=== PATIENT | female | born 1980 | race American Indian/Alaskan Native ===

== ENCOUNTER 2016-08-27 17:10 | Emergency (ER) | payer BC, OTHER ==
[2016-08-27 17:10] VITALS: BMI 20.9
[2016-08-27 17:21] VITALS: RESP 16; TEMP 98.4
--- NOTE | 2016-08-27 17:52 | ED PDOC ---
Arrival/HPI - General Chief Complaint: Flu-like Symptoms Time Seen by Provider: 08/27/16 17:47 - History of Present Illness Narrative History of Present Illness (Text): 08/27/16 18:17 36yo female with 2-3 days duration fevers, chills, sore throat, L. earache, dry cough, and nasal congestion. Denies cp/sob/mckeon. Denies neck pain. No other complaints. Past Medical History - Provider Review Nursing Documentation Reviewed: Yes - Infectious Disease Hx of Infectious Diseases: None - Pulmonary Hx Asthma: Yes - Renal Hx Kidney Stones: Yes - Hematological/Oncological Hx Blood Transfusions: No - Musculoskeletal/Rheumatological Hx Falls: No - Gastrointestinal Hx Gastrointestinal Disorders: Yes Hx Gastroesophageal Reflux: Yes Other/Comment: abd cramping and rectal bleeding on and off since jan 2015 - Genitourinary/Gynecological Hx Genitourinary Disorders: Yes Hx Urinary Tract Infection: Yes (e coli) Other/Comment: ectopic/perineal - Psychiatric Hx Depression: No Hx Emotional Abuse: No Hx Physical Abuse: No Hx Substance Use: No - Anesthesia Hx Anesthesia: Yes Hx Anesthesia Reactions: No Hx Malignant Hyperthermia: No - Suicidal Assessment Feels Threatened In Home Enviroment: No Family/Social History Family/Social History: Unknown Family HX Smoking Status: Light Smoker < 10 Cigarettes Daily Hx Alcohol Use: Yes (social) Frequency of alcohol use: Socially Hx Substance Use: No Allergies/Home Meds Allergies/Adverse Reactions: Allergies latex Allergy (Verified 01/21/16 13:42) RASH Review of Systems - Physician Review All systems were reviewed & negative as marked: Yes - Review of Systems Constitutional: Fevers. absent: Fatigue, Weight Change Eyes: absent: Vision Changes, Photophobia ENT: Sore Throat, Sinus Congestion Respiratory: Cough. absent: SOB, Wheezing Cardiovascular: absent: Chest Pain, Orthopnea Gastrointestinal: absent: Abdominal Pain, Nausea, Vomiting Genitourinary Female: absent: Dysuria, Frequency Musculoskeletal: absent: Back Pain, Neck Pain Skin: absent: Rash, Pruritis Neurological: absent: Headache, Dizziness Physical Exam - Physical Exam Narrative Physical Exam (Text): - Physical exam Patient appears age appropriate, speaking full sentences without difficulty - Systems Exam Head: Present: Atraumatic, Normocephalic Pupils: Present: PERRL Extraocular Muscles: Present: EOMI Conjunctiva: Present: Normal ENT: Erythematous posterior pharynx, No pain with hyoid manipulation, No muffled voice, no floor of mouth pain or elevation Mouth: Present: Moist Mucous Membranes Neck: Present: Normal Range of Motion. No: MIDLINE TENDERNESS, Paraspinal Tenderness Respiratory/Chest: Present: Clear to Auscultation, Good Air Exchange. No: Respiratory Distress, Accessory Muscle Use, Tachypneic Cardiovascular: Present: Regular Rate and Rhythm, Normal S1, S2, Peripheral Pulses Present. No: Murmurs Abdomen: Present: Normal Bowel Sounds, No: Tenderness, Peritoneal Signs, Rebound, Guarding, Distention Back: Present: Normal Inspection. No: Midline Tenderness, Paraspinal Tenderness Upper Extremity: Present: Normal Inspection. No: Cyanosis, Edema Lower Extremity: Present: Normal Inspection. No: Edema Neurological: Present: GCS=15, Speech Normal, cranial nerves II through XII fully intact with no cerebellar abnormality, neuro-sensory fully intact. No focal neurological deficits. Skin: Present: Warm, Dry, Normal Color. No: Rashes Lymphatic: Present: OX3, NI, NC Psychiatric: Present: Alert, Oriented x 3, Normal Insight, Normal Concentration Vital Signs Reviewed: Yes Vital Signs Temp Pulse Resp BP Pulse Ox 08/27/16 17:10 98.4 F 59 L 16 130/84 97 Temperature: Afebrile Blood Pressure: Normal Pulse: Regular Respiratory Rate: Normal Appearance: Positive for: Well-Appearing Pain Distress: None Mental Status: Positive for: Alert and Oriented X 3 - Systems Exam Ears: Present: Normal (b/l), NORMAL TM, Normal Canal. No: Erythema, TM Bulging , Fluid, TM Perf Mouth: No: Dry, Drooling, Trismus Pharnyx: No: TONSILS ENLARGED, Peritonsilar Swelling, Uvular Deviation, Muffled/ Hoarse Voice, Strider, Soft Palate/Uvular Edema Medical Decision Making ED Course and Treatment: 36yo female with URI symptoms. No acute findings on PE. Pt afebrile and well appearing. will be dc'd home on abx, decongestants, and anti-tussive meds pt states she feels comfortable being dc'd home with outpatient f/u Pt states she understands to return to the ER right away for new or worsening symptoms or for inability to f/u with PMD or specialist as instructed. Patient states that she fully agrees with and understands discharge instructions. States that she agrees with the plan and disposition. Verbalized and repeated discharge instructions and plan. I have given the patient opportunity to ask any additional questions. Disposition/Present on Arrival - Present on Arrival Any Indicators Present on Arrival: No History of DVT/PE: No History of Uncontrolled Diabetes: No Urinary Catheter: No History of Decub. Ulcer: No History Surgical Site Infection Following: None - Disposition Have Diagnosis and Disposition been Completed?: Yes Diagnosis: Upper respiratory infection Disposition: HOME/ ROUTINE Disposition Time: 17:53 Patient Plan: Discharge Condition: GOOD Discharge Instructions (ExitCare): Upper Respiratory Infection (ED) Additional Instructions: PLEASE RETURN TO THE EMERGENCY DEPARTMENT FOR NEW OR WORSENING SYMPTOMS. RETURN RIGHT AWAY IF YOU CANNOT FOLLOW UP WITH YOUR PRIMARY CARE DOCTOR, CLINIC, OR SPECIALIST IN 1-2 DAYS. Prescriptions: Amoxicillin/Clavulanate [Augmentin 875 MG-125 MG] 1 tab PO BID #14 tab Benzonatate [Tessalon Perle] 100 mg PO Q8 PRN #12 capsule PRN Reason: Cough Guaifen/Phenyleph/Acetaminophn [Mucinex Fast-Max Cold & Sinus 325 mg-200 mg-5] 1 tab PO Q6 #1 packet Referrals: Shant Wallace DO [Staff Provider] - Follow up with primary [facility] [place] - Follow up with primary Forms: WORK NOTE
[2016-08-27 18:36] VITALS: BP 129/81; PULSE 66; O2SAT 98
== END 2016-08-27 18:35 | disposition home or self-care (01) ==
LOC: ED 17:10
DX: J06.9 Acute upper respiratory infection, unspecified (principal)

== ENCOUNTER 2016-09-17 23:43 | Emergency (ER) | payer OTHER ==
[2016-09-17 23:55] VITALS: BMI 21.3
[2016-09-17 23:56] VITALS: RESP 18
[2016-09-18] MEDS ORDERED: Sodium Chloride 0.9% 1,000 ML IV STA (00:04)
--- NOTE | 2016-09-18 00:16 | ED PDOC ---
Arrival/HPI - General Chief Complaint: Flu-like Symptoms Time Seen by Provider: 09/17/16 23:52 Historian: Patient - History of Present Illness Narrative History of Present Illness (Text): 09/17/16 23:52 Keerthi Greenwood is a 36 year old female, with a past medical history of asthma and anemia, presents to the emergency department complaining of frontal headache associated with room-spinning sensation since yesterday. Patient reports she has runny nose and photophobia. She had a 102F fever at home and took Motrin at 10pm. She also informs of chest heaviness which is worsened with deep inspiration. Last menstrual period was September 13. Denies any cough, shortness of breath, nausea, vomiting, diarrhea, or any other complaints at this time. Time/Duration: Other (since yesterday night ) Symptom Course: Unchanged Severity Level: Mild Activities at Onset: Light Context: Home Past Medical History - Provider Review Nursing Documentation Reviewed: Yes - Infectious Disease Hx of Infectious Diseases: None - Pulmonary Hx Asthma: Yes - Renal Hx Kidney Stones: Yes - Hematological/Oncological Hx Anemia: Yes Hx Blood Transfusions: No - Musculoskeletal/Rheumatological Hx Falls: No - Gastrointestinal Hx Gastrointestinal Disorders: Yes Hx Gastroesophageal Reflux: Yes Other/Comment: abd cramping and rectal bleeding on and off since jan 2015 - Genitourinary/Gynecological Hx Genitourinary Disorders: Yes Hx Urinary Tract Infection: Yes (e coli) Other/Comment: ectopic/perineal - Psychiatric Hx Depression: No Hx Emotional Abuse: No Hx Physical Abuse: No Hx Substance Use: No - Anesthesia Hx Anesthesia: Yes Hx Anesthesia Reactions: No Hx Malignant Hyperthermia: No - Suicidal Assessment Feels Threatened In Home Enviroment: No Family/Social History - Physician Review Nursing Documentation Reviewed: Yes Family/Social History: No Known Family HX Smoking Status: Light Smoker < 10 Cigarettes Daily Hx Alcohol Use: Yes (social) Hx Substance Use: No Allergies/Home Meds Allergies/Adverse Reactions: Allergies latex Allergy (Verified 09/18/16 00:00) RASH Review of Systems - Physician Review All systems were reviewed & negative as marked: Yes - Review of Systems Constitutional: Fevers. absent: Fatigue Eyes: Photophobia. absent: Vision Changes, Eye Pain ENT: Rhinorrhea, Sinus Congestion Respiratory: absent: SOB, Cough, Sputum Cardiovascular: Chest Pain Gastrointestinal: absent: Abdominal Pain, Diarrhea, Nausea, Vomiting Genitourinary Female: absent: Dysuria Neurological: Headache. absent: Dizziness, Focal Weakness Physical Exam Vital Signs Reviewed: Yes Vital Signs Temp Pulse Resp BP Pulse Ox 09/17/16 23:55 99.3 F 80 18 130/91 H 100 Temperature: Afebrile Blood Pressure: Normal Pulse: Regular Respiratory Rate: Normal Appearance: Positive for: Well-Appearing, Non-Toxic, Comfortable Pain Distress: None Mental Status: Positive for: Alert and Oriented X 3 - Systems Exam Head: Present: Atraumatic, Normocephalic Pupils: Present: PERRL Conjunctiva: Present: Normal Mouth: Present: Moist Mucous Membranes Respiratory/Chest: Present: Clear to Auscultation, Good Air Exchange. No: Respiratory Distress, Accessory Muscle Use Cardiovascular: Present: Regular Rate and Rhythm, Normal S1, S2. No: Murmurs Abdomen: Present: Normal Bowel Sounds. No: Tenderness, Distention, Peritoneal Signs Upper Extremity: Present: Normal Inspection. No: Cyanosis, Edema Lower Extremity: Present: Normal Inspection. No: Edema Neurological: Present: GCS=15, CN II-XII Intact, Speech Normal, Motor Func Grossly Intact, Normal Sensory Function Skin: Present: Warm, Dry, Normal Color. No: Rashes Psychiatric: Present: Alert, Oriented x 3, Normal Insight, Normal Concentration Medical Decision Making ED Course and Treatment: 09/18/16 00:17 Impression: A 36 year old female who presents to the emergency department complaining of frontal headache associated with runny nose and photophobia. Patient also complains of chest heaviness. Differential Diagnosis include but are not limited to: Sinusitis vs. Migraines vs. URI. ACS considered, but chest pain is atypical in nature, and patient has no ACS risk factors and is PERC negative. Plan: -- CT Head -- EKG -- Chest X-ray -- Toradol -- Reglan -- IV fluids -- POC test -- Reassess and disposition Progress Notes: 09/18/16 01:51 EXAM: CT Head Without Intravenous Contrast FINDINGS: Limitations: Motion artifact - mild. Brain: No definite intracranial hemorrhage. No mass. No definite edema. Ventricles: No hydrocephalus. Bones/joints: No acute fracture. Soft tissues: Scalp calcifications. Sinuses: No acute sinusitis. Mastoid air cells: No mastoid effusion. Orbits: Unremarkable as visualized. IMPRESSION: 1. No definite acute intracranial abnormality. 2. Incidental/non-acute findings are described above. Dictated and Authenticated by: Lamont Loyola MD 09/18/16 01:57 EKG: NSR @ 70; no ST/T changes; normal intervals, normal axis. 09/18/16 01:[address] with no acute findings. Patient is feeling better compared to when she came in. EKG and CXR are unremarkable. Will d/c on naprosyn and treat for sinusitis given her symptoms. Will also give meclizine for vertigo. - RAD Interpretation Radiology Orders: 09/18/16 00:03 Brain [HEAD W/O CONTRAST] [CT] Stat CHEST TWO VIEWS (PA/LAT) [RAD] Stat - Medication Orders Current Medication Orders: Discontinued Medications Sodium Chloride (Sodium Chloride 0.9%) 1,000 mls @ 999 mls/hr IV .Q1H1M STA Stop: 09/18/16 01:04 Last Admin: 09/18/16 00:26 Dose: 999 mls/hr Ketorolac Tromethamine (Toradol) 30 mg IVP STAT STA Stop: 09/18/16 00:04 Last Admin: 09/18/16 00:27 Dose: 30 mg Metoclopramide HCl (Reglan) 10 mg IVP STAT STA Stop: 09/18/16 00:04 Last Admin: 09/18/16 00:27 Dose: 10 mg Tramadol/Acetaminophen (Ultracet 37.5/325 Mg) 2 tab PO STAT STA Stop: 09/18/16 00:50 Last Admin: 09/18/16 01:04 Dose: 2 tab - Scribe Statement The provider has reviewed the documentation as recorded by the Mateo Ba Provider Attestation: All medical record entries made by the Mateo were at my direction and personally dictated by me. I have reviewed the chart and agree that the record accurately reflects my personal performance of the history, physical exam, medical decision making, and the department course for this patient. I have also personally directed, reviewed, and agree with the discharge instructions and disposition. Disposition/Present on Arrival - Present on Arrival Any Indicators Present on Arrival: No History of DVT/PE: No History of Uncontrolled Diabetes: No Urinary Catheter: No History of Decub. Ulcer: No History Surgical Site Infection Following: None - Disposition Have Diagnosis and Disposition been Completed?: Yes Diagnosis: Headache, Vertigo Disposition: HOME/ ROUTINE Disposition Time: 02:00 Patient Plan: Discharge Condition: GOOD Discharge Instructions (ExitCare): Acute Headache (ED), Vertigo (ED) Additional Instructions: Take the medications as prescribed. Drink plenty of fluids. Follow up with the medical clinic. Return to the emergency department if any new concerning symptoms. Prescriptions: Amoxicillin/Clavulanate [Augmentin 875 MG-125 MG] 1 tab PO BID #20 tab Meclizine [Antivert] 1 tab PO TID PRN #15 tab PRN Reason: Dizziness Naproxen [Naprosyn Tab] 1 tab PO BID #14 tab Pseudoephedrine [Sudafed Tab] 2 tab PO Q6H PRN #24 tab PRN Reason: Nasal Congestion Referrals: [facility] [place] [Outside] - Follow up with primary
[2016-09-18] MEDS ORDERED: TraMADol/Apap 37.5/325 mg Tab PO STA (00:49)
--- NOTE | 2016-09-18 01:43 | CT ---
EXAM: CT Head Without Intravenous Contrast CLINICAL HISTORY: 36 years old, female; Pain; Headache TECHNIQUE: Axial computed tomography images of the head/brain without intravenous contrast. This CT exam was performed using one or more of the following dose reduction techniques: automated exposure control, adjustment of the mA and/or kV according to patient size, and/or use of iterative reconstruction technique. COMPARISON: No relevant prior studies available. FINDINGS: Limitations: Motion artifact - mild. Brain: No definite intracranial hemorrhage. No mass. No definite edema. Ventricles: No hydrocephalus. Bones/joints: No acute fracture. Soft tissues: Scalp calcifications. Sinuses: No acute sinusitis. Mastoid air cells: No mastoid effusion. Orbits: Unremarkable as visualized. IMPRESSION: 1. No definite acute intracranial abnormality. 2. Incidental/non-acute findings are described above.
[2016-09-18] MEDS ORDERED: Amoxicillin-Clav 875-125 mg Tab PO STA (02:05)
[2016-09-18 02:30] VITALS: BP 121/86; PULSE 78; TEMP 98.8; O2SAT 99
--- NOTE | 2016-09-18 07:57 | RAD ---
HISTORY: cp COMPARISON: 12/09/2015 TECHNIQUE: Chest PA and lateral FINDINGS: LUNGS: No active pulmonary disease. PLEURA: No significant pleural effusion identified. No pneumothorax apparent. CARDIOVASCULAR: Normal. OSSEOUS STRUCTURES: No significant abnormalities. VISUALIZED UPPER ABDOMEN: Normal. OTHER FINDINGS: There are round metallic densities projecting over the posterior aspect of each upper thorax. IMPRESSION: No active disease.
--- NOTE | 2016-09-18 10:48 | CARD ---
APPROVED REPORT EKG Measurement Heart [id number] ID [id number] <Conclusion> Normal sinus rhythm with sinus arrhythmia Septal infarct, age undetermined LVH by voltage NSSTW changes
== END 2016-09-18 02:04 | disposition home or self-care (01) ==
LOC: ED 23:43
DX: R51 Headache (principal); R42 Dizziness and giddiness; J45.909 Unspecified asthma, uncomplicated; D64.9 Anemia, unspecified; Z72.0 Tobacco use
CPT/HCPCS: 70450; 71020; 93005; 96361; 96374; 96375; 99283; J1885; J2765; J7040

== ENCOUNTER 2016-12-18 04:07 | Emergency (ER) | payer OTHER ==
[2016-12-18] MEDS ORDERED: Sodium Chloride 0.9% 1,000 ML IV STA (04:34)
--- NOTE | 2016-12-18 04:52 | ED PDOC ---
Arrival/HPI - General Chief Complaint: Abdominal Pain Time Seen by Provider: 12/18/16 04:33 Historian: Patient - History of Present Illness Narrative History of Present Illness (Text): 12/18/16 04:52 A 36 year old female, whose past medical history includes asthma, kidney stones and ectopic , presents to the emergency department complaining of left lower quadrant abdominal discomfort with some back pain for the past couple weeks. Reports pain is not associated with any vaginal discharge or dysuria. Patient denies any fever, chills, nausea, vomiting, diarrhea or any other complaints at this time. PMD: Dr. Clemens Time/Duration: > week Symptom Onset: Sudden Symptom Course: Unchanged Activities at Onset: Rest Context: Home Past Medical History - Provider Review Nursing Documentation Reviewed: Yes - Infectious Disease Hx of Infectious Diseases: None - Pulmonary Hx Asthma: Yes - Renal Hx Kidney Stones: Yes - Hematological/Oncological Hx Anemia: Yes Hx Blood Transfusions: No - Musculoskeletal/Rheumatological Hx Falls: No - Gastrointestinal Hx Gastrointestinal Disorders: Yes Hx Gastroesophageal Reflux: Yes Other/Comment: abd cramping and rectal bleeding on and off since jan 2015 - Genitourinary/Gynecological Hx Genitourinary Disorders: Yes Hx Urinary Tract Infection: Yes (e coli) Other/Comment: ectopic/perineal , Ovarian cyst, Fibroids. - Psychiatric Hx Depression: No Hx Emotional Abuse: No Hx Physical Abuse: No Hx Substance Use: No - Anesthesia Hx Anesthesia: Yes Hx Anesthesia Reactions: No Hx Malignant Hyperthermia: No - Suicidal Assessment Feels Threatened In Home Enviroment: No Family/Social History - Physician Review Nursing Documentation Reviewed: Yes Family/Social History: No Known Family HX Smoking Status: Light Smoker < 10 Cigarettes Daily Hx Alcohol Use: Yes (social) Hx Substance Use: No Allergies/Home Meds Allergies/Adverse Reactions: Allergies latex Allergy (Verified 12/18/16 04:55) RASH Home Medications: Home Meds Medication Instructions Recorded Confirmed No Known Home Med 12/18/16 12/18/16 Review of Systems - Physician Review All systems were reviewed & negative as marked: Yes - Review of Systems Constitutional: absent: Fevers, Other (chills) Gastrointestinal: Abdominal Pain (left lower quadrant ). absent: Diarrhea, Nausea, Vomiting Genitourinary Female: absent: Dysuria, Vaginal Discharge Musculoskeletal: Back Pain Physical Exam Vital Signs Reviewed: Yes Vital Signs Temp Pulse Resp BP Pulse Ox 10/04/17 06:58 90 18 124/88 99 12/18/16 04:31 99.2 F 92 H 20 139/99 H 99 Temperature: Afebrile Blood Pressure: Hypertensive Pulse: Regular Respiratory Rate: Normal Appearance: Positive for: Well-Appearing, Non-Toxic, Comfortable Pain Distress: None Mental Status: Positive for: Alert and Oriented X 3 - Systems Exam Head: Present: Atraumatic, Normocephalic Pupils: Present: PERRL Extroacular Muscles: Present: EOMI Conjunctiva: Present: Normal Mouth: Present: Moist Mucous Membranes Neck: Present: Normal Range of Motion Respiratory/Chest: Present: Clear to Auscultation, Good Air Exchange. No: Respiratory Distress, Accessory Muscle Use Cardiovascular: Present: Regular Rate and Rhythm, Normal S1, S2. No: Murmurs Abdomen: Present: Tenderness (LLQ palpable tenderness), Normal Bowel Sounds. No : Distention, Peritoneal Signs Back: Present: Normal Inspection Upper Extremity: Present: Normal Inspection. No: Cyanosis, Edema Lower Extremity: Present: Normal Inspection. No: Edema Neurological: Present: GCS=15, CN II-XII Intact, Speech Normal Skin: Present: Warm, Dry, Normal Color. No: Rashes Psychiatric: Present: Alert, Oriented x 3, Normal Insight, Normal Concentration Medical Decision Making ED Course and Treatment: 12/18/16 04:49 Impression: A 36 year old female with left lower quadrant abdominal pain and back pain. Differential Diagnosis included but are not limited to: renal colic vs. diverticulitis vs. ovarian cyst vs. UTI Plan: -- labs -- Urinalysis -- IV fluids -- Reassess and disposition Prior Visits: Notes and results from previous visits were reviewed. Patient was last seen in the emergency department on 09/17/16 for evaluation of flu-like symptoms. Progress Notes: - Lab Interpretations Lab Results: 12/18/16 04:49 12/18/16 04:49 Lab Results 12/18/16 04:49: WBC 8.5, RBC 3.87, Hgb 11.2 L, Hct 34.2 L, MCV 88.4, MCH 28.9, MCHC 32.7, RDW 16.2 H, Plt Count 223, MPV 10.9 12/18/16 04:49: Sodium 143, Potassium 3.9, Chloride 106, Carbon Dioxide 25, Anion Gap 16, BUN 18, Creatinine 0.5 L, Est GFR ( Amer) > 60, Est GFR ( Non-Af Amer) > 60, Random Glucose 91, Calcium 9.1, Total Bilirubin 0.7, AST 27, ALT 18, Alkaline Phosphatase 59, Total Protein 7.7, Albumin 4.3, Globulin 3.4, Albumin/Globulin Ratio 1.3, Lipase 133 12/18/16 04:49: Urine Color Yellow, Urine Appearance Sl cloudy, Urine pH 6.0, Ur Specific [place] 1.025, Urine Protein Negative, Urine Glucose (UA) Negative, Urine Ketones Negative, Urine Blood Small H, Urine Nitrate Negative, Urine Bilirubin Negative, Urine Urobilinogen 0.2, Ur Leukocyte Esterase Negative, Urine RBC 1 - 3, Urine WBC 1 - 3, Ur Epithelial Cells 4 - 5, Urine Bacteria Mod , Urine HCG, Qual Negative I have reviewed the lab results: Yes - RAD Interpretation Radiology Orders: 12/18/16 05:23 ABD & PELVIS W/O PO OR IV CONT [CT] Stat - Medication Orders Current Medication Orders: Discontinued Medications Sodium Chloride (Sodium Chloride 0.9%) 1,000 mls @ 999 mls/hr IV .Q1H1M STA Stop: 12/18/16 05:34 Last Admin: 12/18/16 04:51 Dose: 999 mls/hr eMAR Start Stop Document 12/18/16 04:51 SS (Rec: 12/18/16 04:51 SS [id number]) Intravenous Solution Start Date 12/18/16 Start Time 04:51 End Date 12/18/16 End time 05:51 Total Infusion Time 60 Ketorolac Tromethamine (Toradol) 30 mg IVP ONCE ONE Stop: 12/18/16 04:54 Last Admin: 12/18/16 04:58 Dose: 30 mg MAR Pain Assessment Document 12/18/16 04:58 SS (Rec: 12/18/16 04:58 SS [id number]) Pain Reassessment Is this a pain reassessment? No Sleep Is patient sleeping during reassessment? No Presence of Pain Presence of Pain Yes Location Upper or Lower Lower Pain Location Body Site Abdomen Description Description Constant Intensity of Pain at present 10 IVP Administration Document 12/18/16 04:58 SS (Rec: 12/18/16 04:58 SS [id number]) Charges for Administration # of IVP Administrations 1 Morphine Sulfate (Morphine) 2 mg IVP STAT STA Stop: 12/18/16 05:56 Last Admin: 12/18/16 06:07 Dose: 2 mg MAR Pain Assessment Document 12/18/16 06:07 SS (Rec: 12/18/16 06:08 SS [id number]) Pain Reassessment Is this a pain reassessment? No Sleep Is patient sleeping during reassessment? No Presence of Pain Presence of Pain Yes Pain Scale Used Pain Scale Used Numeric IVP Administration Document 12/18/16 06:07 SS (Rec: 12/18/16 06:08 SS [id number]) Charges for Administration # of IVP Administrations 1 Ondansetron HCl (Zofran Inj) 4 mg IVP ONCE ONE Stop: 12/18/16 05:56 Last Admin: 12/18/16 06:07 Dose: 4 mg IVP Administration Document 12/18/16 06:07 SS (Rec: 12/18/16 06:07 SS [id number]) Charges for Administration # of IVP Administrations 1 - Transfer of Care Patient signed out to Dr:: Guillaume Pending Radiology Studies:: CT abd/pel./reassess/final dispoosition - Scribe Statement The provider has reviewed the documentation as recorded by the Mateo Styles Provider Scribe Attestation: All medical record entries made by the Scribe were at my direction and personally dictated by me. I have reviewed the chart and agree that the record accurately reflects my personal performance of the history, physical exam, medical decision making, and the department course for this patient. I have also personally directed, reviewed, and agree with the discharge instructions and disposition. Disposition/Present on Arrival - Present on Arrival Any Indicators Present on Arrival: No History of DVT/PE: No History of Uncontrolled Diabetes: No Urinary Catheter: No History of Decub. Ulcer: No History Surgical Site Infection Following: None - Disposition Have Diagnosis and Disposition been Completed?: No Diagnosis: Abdominal pain Disposition Time: 07:00 Condition: STABLE Referrals: Paul Clemens MD [Primary Care Provider] - Follow up with primary Forms: [employer] (Kinyarwanda)
[2016-12-18 05:02] LABS: HEMATOCRIT 34.2 % (36.0-48.0); MEAN CELL VOLUME 88.4 fl (80.0-105.0); MEAN CORPUSCULAR HEMOGLOBIN 28.9 pg (25.0-35.0); MEAN CORPUSCULAR HGB CONC 32.7 g/dl (31.0-37.0); MEAN PLATELET VOLUME 10.9 fl (7.0-11.0); RED CELL DISTRIBUTION WIDTH 16.2 % (11.5-14.5); URINE BILIRUBIN NEGATIVE (NEGATIVE); URINE BLOOD SMALL (NEGATIVE); URINE GLUCOSE (UA) NEGATIVE (NEGATIVE); URINE KETONE NEGATIVE (NEGATIVE); URINE LEUKOCYTE ESTERASE NEGATIVE Leu/uL (NEGATIVE); URINE PROTEIN NEGATIVE mg/dL (<30 mg/dL); URINE UROBILINOGEN 0.2 E.U./dL (<1 E.U./dL); WHITE BLOOD COUNT 8.5 10^3/ul (4.5-11.0)
[2016-12-18 05:08] LABS: URINE APPEARANCE SL CLOUDY (CLEAR); URINE COLOR YELLOW (YELLOW)
[2016-12-18 05:22] LABS: URINE BACTERIA MOD (NEG)
[2016-12-18 05:30] LABS: ALB/GLOB RATIO 1.3 (1.1-1.8); ALKALINE PHOSPHATASE 59 U/L (38-126); ALT/SGPT 18 U/L (7-56); AST/SGOT 27 U/L (14-36); BILIRUBIN,TOTAL 0.7 mg/dL (0.2-1.3); BLOOD UREA NITROGEN 18 mg/dL (7-21); CALCIUM 9.1 mg/dL (8.4-10.5); CARBON DIOXIDE 25 mmol/L (21-33); CHLORIDE 106 mmol/L (98-107); GFR AFRICAN-AMERICAN > 60; GLUCOSE,RANDOM 91 mg/dL (70-110); LIPASE 133 U/L (23-300); POTASSIUM 3.9 mmol/L (3.6-5.0); SODIUM 143 mmol/L (132-148); TOTAL PROTEIN 7.7 g/dL (5.8-8.3)
[2016-12-18] MEDS ORDERED: Morphine 2 mg/ml ISec IVP STA (05:55)
[2016-12-18 06:58] VITALS: RESP 18
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
[2016-12-18 07:22] VITALS: BP 111/82; PULSE 86; TEMP 98.1; O2SAT 98
== END 2016-12-18 07:23 | disposition home or self-care (01) ==
LOC: ED 04:07
DX: R10.9 Unspecified abdominal pain (principal)
CPT/HCPCS: 74176; 80053; 81001; 83690; 84703; 85027; 96361; 96374; 96375; 99284; J1885; J2270; J2405; J7040

== ENCOUNTER 2017-02-03 01:05 | Observation (INO) | payer OTHER ==
[2017-02-03] MEDS ORDERED: Oxycodone/Acetaminophen 5/325 mg Tab PO STA (01:39)
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
[2017-02-03 05:32] LABS: HEMATOCRIT 34.5 % (36.0-48.0); MEAN CELL VOLUME 91.3 fl (80.0-105.0); MEAN CORPUSCULAR HEMOGLOBIN 30.2 pg (25.0-35.0); MEAN PLATELET VOLUME 10.9 fl (7.0-11.0); RED CELL DISTRIBUTION WIDTH 15.9 % (11.5-14.5); WHITE BLOOD COUNT 7.3 10^3/ul (4.5-11.0)
[2017-02-03 05:38] LABS: ALB/GLOB RATIO 1.1 (1.1-1.8); ALKALINE PHOSPHATASE 59 U/L (38-126); ALT/SGPT 34 U/L (7-56); AST/SGOT 31 U/L (14-36); BLOOD UREA NITROGEN 17 mg/dL (7-21); CALCIUM 9.2 mg/dL (8.4-10.5); CARBON DIOXIDE 26 mmol/L (21-33); CHLORIDE 105 mmol/L (98-107); GFR AFRICAN-AMERICAN > 60; GLUCOSE,RANDOM 88 mg/dL (70-110); POTASSIUM 3.4 mmol/L (3.6-5.0); SODIUM 139 mmol/L (132-148); TOTAL PROTEIN 7.9 g/dL (5.8-8.3)
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
--- NOTE | 2017-02-03 08:43 | RAD ---
HISTORY: back pain COMPARISON: Chest radiographs 09/18/2016. FINDINGS: BONES: Alignment maintained. No fracture. DISC SPACES: Normal. SOFT TISSUES: Normal. OTHER FINDINGS: None. IMPRESSION: Unremarkable radiographs of the thoracic spine. Stable appearance when compared to prior lateral view from chest radiographs 09/18/2016.
--- NOTE | 2017-02-03 08:46 | RAD ---
HISTORY: pain COMPARISON: Chest radiograph 09/18/[address] without contrast 02/03/2017. FINDINGS: LUNGS: No active pulmonary disease. PLEURA: No significant pleural effusion identified, no pneumothorax apparent. CARDIOVASCULAR: Normal. OSSEOUS STRUCTURES: No significant abnormalities. VISUALIZED UPPER ABDOMEN: Normal. OTHER FINDINGS: None. IMPRESSION: No interval acute cardiopulmonary disease appreciated.However, please see separate chest CT report 02/03/2017 indicating a small right upper lobe nodule and minimal left basilar bulla or trace pneumothorax. No pneumothorax is appreciable in this solitary frontal radiograph.
[2017-02-03] MEDS ORDERED: Oxycodone/Acetaminophen 2.5/325 mg Tab PO PRN (09:28)
[2017-02-03] MEDS ORDERED: Potassium Chloride 20 mEq ER Tab PO ONE (10:18)
[2017-02-03] MEDS ORDERED: Albuterol-Ipratrop 3 mg / 0.5 (3 ml) UD IH PRN (10:32)
[2017-02-03] MEDS ORDERED: Morphine 2 mg/ml ISec IVP PRN (10:34)
[2017-02-03] MEDS ORDERED: Benzocaine/Menthol (Cepacol) Lozenge MT PRN (11:40)
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
[2017-02-03] MEDS: Oxycodone/Acetaminophen 5/325 mg Tab PO PRN ×2 (15:18→21:02)
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
[2017-02-03 17:21] VITALS: RESP 20
[2017-02-04] MEDS: Oxycodone/Acetaminophen 5/325 mg Tab PO PRN (05:17)
[2017-02-04 06:27] LABS: HEMATOCRIT 34.6 % (36.0-48.0); MEAN CELL VOLUME 90.6 fl (80.0-105.0); MEAN CORPUSCULAR HEMOGLOBIN 29.6 pg (25.0-35.0); MEAN CORPUSCULAR HGB CONC 32.7 g/dl (31.0-37.0); MEAN PLATELET VOLUME 10.7 fl (7.0-11.0); RED CELL DISTRIBUTION WIDTH 15.6 % (11.5-14.5); WHITE BLOOD COUNT 6.6 10^3/ul (4.5-11.0)
[2017-02-04 07:19] LABS: ALB/GLOB RATIO 1.1 (1.1-1.8); ALKALINE PHOSPHATASE 59 U/L (38-126); ALT/SGPT 19 U/L (7-56); AST/SGOT 26 U/L (14-36); BILIRUBIN,TOTAL 1.1 mg/dL (0.2-1.3); BLOOD UREA NITROGEN 12 mg/dL (7-21); CALCIUM 9.1 mg/dL (8.4-10.5); CARBON DIOXIDE 25 mmol/L (21-33); CHLORIDE 107 mmol/L (98-107); GFR AFRICAN-AMERICAN > 60; GLUCOSE,RANDOM 92 mg/dL (70-110); POTASSIUM 4.1 mmol/L (3.6-5.0); SODIUM 140 mmol/L (132-148); TOTAL PROTEIN 7.7 g/dL (5.8-8.3)
[2017-02-04 09:07] VITALS: BP 129/91; PULSE 64; TEMP 97.9; O2SAT 99
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
--- NOTE | 2017-02-04 11:37 | CARD ---
APPROVED REPORT EKG Measurement Heart [id number] <Conclusion> Marked sinus bradycardia LVH NSSTW changes No change except the rate is slower
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
== END 2017-02-04 12:14 | disposition home or self-care (01) ==
LOC: ED 01:05 → ERH 04:22 → 3RNO 09:01
PROVIDERS: ADMIT Internal Medicine; ATTEND Internal Medicine
DX: S00.81XA Abrasion of other part of head, initial encounter (principal); F07.81 Postconcussional syndrome; R10.2 Pelvic and perineal pain; J45.20 Mild intermittent asthma, uncomplicated; J98.4 Other disorders of lung; Z87.891 Personal history of nicotine dependence; Y08.89XA Assault by other specified means, initial encounter; Y92.9 Unspecified place or not applicable
CPT/HCPCS: 36415; 70450; 71010; 71250; 72070; 72125; 73130; 80053; 83735; 85027; 93005; 99285; G0378; J2405; J2765